=== PATIENT | female | born 1985 | race Caucasian/White ===

== ENCOUNTER 2017-10-25 20:38 | Outpatient (CLI) | payer OTHER, SELFPAY ==
[2017-10-25 21:18] VITALS: BMI 29.0
--- NOTE | 2017-10-30 08:09 | OB.TRI.NOTE ---
History of Present Illness Date of Service: 10/25/17 Reason For Visit: R/O LABOR Allergies amoxicillin Allergy (Verified 10/25/17 21:19) Rash Impression/Plan 32yo @ 40+ wks in early labor dc home pt returned a short time later in active labor with SROM at home
== END 2017-10-25 23:05 | disposition home or self-care (01) ==
LOC: WPOUT 21:13 → WP 21:14
PROVIDERS: Family Provider Obstetrics & Gynecology; Visit Provider Obstetrics & Gynecology
DX: Z34.03 Encounter for supervision of normal first pregnancy, third trimester (principal); Z3A.40 40 weeks gestation of pregnancy
CPT/HCPCS: 59025; 59050; 99218; G0378

== ENCOUNTER 2017-10-26 00:15 | Inpatient (IN) | payer OTHER, SELFPAY ==
[2017-10-26 00:22] VITALS: BMI 28.9
[2017-10-26] MEDS: Lactated Ringers 1,000 ML 50 ML IV ×3 (00:25→03:15)
[2017-10-26 02:23] LABS: Hematocrit 39.9 % (37-47); Hemoglobin 13.7 g/dl (12.0-15.0); Mean Corp Hgb Conc 34.3 g/gl (32-36); Mean Corpuscular Volume 87.5 fL (81-99); Mean Platelet Vol. 12.4 fl (6.2-12.0); Platelet Count 215 K/mm3 (150-450); RBC Distribution Width CV 13.1 % (11.6-14.6); RBC Distribution Width SD 40.9 fl (35.1-43.9); Red Blood Count 4.56 M/mm3 (4.2-5.4); White Blood Count 17.1 K/mm3 (4.4-11.0)
[2017-10-26 02:26] LABS: Scan Indicated on CBC? Y/N NO
[2017-10-26] MEDS: Oxytocin 30 units/NS 500 ml 30 UNITS/500 ML IV.SOLN 334 UNITS IV (06:22)
--- NOTE | 2017-10-26 06:32 | PCM.HP.OB ---
History Date of Admission: 10/26/17 Final ASHLEY: 10/23/17 Final ASHLEY Source: US <20 weeks Gestational age: 40 Weeks and 3 Days History of this : This is a 32 year-old, at 40.3 weeks gestational age c/o SROM at home with regular contractions pt was found to be in active labor Allergies amoxicillin Allergy (Verified 10/25/17 21:19) Rash Home Medications: Home Medications Vits [Prenatabs FA] 1 tablet PO DAILY 10/25/17 Smoking Status: Never smoker Alcohol: None Number of Fetus(es): 1 History Past Pregnancies: Past Pregnancies Delivery Date Name GA/Weeks Outcome Route Weight Infant Gender Labor Length Anesthesia Delivery Location Provider FOB Labs: O+, HIV neg, Hep B Neg, Rub imm, Syphilis neg, GBS neg Review of Systems Gastrointestinal: Reports: Abdominal Pain Physical Exam General: Alert, Oriented x3 Abdomen: Non Tender, Gravid Neurological: Cranial nerves II-XII grossly intact Estimated gestational size: Appropriate for gestational size Presentation: Cephalic Cervix Dilation (cm): 5 Station: -1 Effacement (%): 90 Assessment/Plan This is a 32 year-old, G 1, P 0, at 40.3 weeks gestational age in active labor with SROM.\ 1) Admit to L&D 2) Monitor FHR/TOCO 3) anticipate 4) epidural for pain
--- NOTE | 2017-10-26 06:41 | PCM.OB.VAG ---
Vaginal Delivery Maternal Presentation: Active Labor, Spontaneous Rupture of Membranes Amniotic Membrane Rupture Type: Spontaneous at home Amniotic Fluid Description: Clear Final ASHLEY: 10/23/17 Gestational age: 40 Weeks and 3 Days Date of Procedure: 10/26/17 Pre-Operative Diagnosis: spontaneous labor Post-Operative Diagnosis: live female Surgery/ Procedure Performed: Vacuum Assisted Vaginal Delivery Type of Anesthesia: Epidural Description of Procedure: pt with prolonged deceleration during pushing - was taken to OR for double set up back up and anesthesia were called. once we were in OR FHR was 130s- Patient was pushing effectively - vacuum applied total of 3 times with no pop offs- once head at +4 station- vacuum applied and head delivered atraumatically followed by rest of body. was vigorous at . Presentation: Vertex Placental Delivery Description: Spontaneous Placenta Disposition: [facility] Cord Vessel Description: 3 Vessels Cord Entanglement: None Drain: Gonzalez to straight drain - 300 Estimated Blood Loss: 300 A gender: Female (1 minute): 8 Episiotomy Description: None Laceration: Perineal Extension/lac - repaired with 2-0 vicryl and 3-0 rapide in usual fashion, 2nd degree Medications given after delivery: IV Pitocin Complications: None
[2017-10-26] MEDS: Oxytocin 30 units/NS 500 ml 30 UNITS/500 ML IV.SOLN 167 UNITS IV (06:52)
[2017-10-26 08:55] VITALS: BP 109/66; PULSE 85; RESP 18; TEMP 37; O2SAT 98
[2017-10-26] MEDS: Ibuprofen 600 MG Tablet PO (09:06)
[2017-10-26 11:32] VITALS: BP 103/52; PULSE 63; RESP 18; TEMP 37.1
[2017-10-26 16:00] VITALS: BP 108/62; PULSE 78; RESP 16; TEMP 36.8; O2SAT 95
[2017-10-26 19:50] VITALS: BP 123/75; PULSE 77; RESP 16; TEMP 36.7
[2017-10-27 00:50] VITALS: BP 126/73; PULSE 74; RESP 16; TEMP 36.6
[2017-10-27 05:15] VITALS: BP 126/77; PULSE 77; RESP 16; TEMP 36.4
--- NOTE | 2017-10-27 07:07 | PCM.PN.OB ---
Subjective: pain well controlled, average lochia - Physical Exam General: Alert, Cooperative, No apparent distress Vital Signs Temp Pulse Resp BP Pulse Ox 97.6 F L 77 16 126/77 H 95 10/27/17 05:15 10/27/17 05:15 10/27/17 05:15 10/27/17 05:15 10/26/17 16:00 Oxygen Delivery Method Room Air Weight: 78.925 kg Body Mass Index (BMI) 28.9 Intake and Output for Last 24 Hours 10/25/17 10/26/17 10/27/17 23:59 23:59 23:59 Intake Total 734 / 734 Output Total 1950 / 1950 Balance -1216 / -1216 Medical Necessity - Tobacco Use Smoking Status: Never smoker Assessment/Plan PPD#1 doing well working on .
[2017-10-27 09:10] VITALS: BP 117/75; PULSE 85; RESP 18; TEMP 36.8
[2017-10-27] MEDS: Acetaminophen 500 MG Tablet 1000 MG PO (11:35)
[2017-10-27 14:00] VITALS: BP 109/68; PULSE 72; RESP 20; TEMP 36.9
[2017-10-27 20:50] VITALS: BP 125/78; PULSE 75; RESP 18; TEMP 36.8; O2SAT 97
[2017-10-28 03:00] VITALS: BP 111/62; PULSE 74; RESP 16; TEMP 36.3; O2SAT 96
[2017-10-28 07:42] VITALS: BP 118/70; PULSE 66; RESP 18; TEMP 36.6
[2017-10-28 09:16] VITALS: BP 118/70; PULSE 66; RESP 18; TEMP 36.6
--- NOTE | 2017-10-28 09:16 | DCINST_ITS ---
Discharge Diet: No Restrictions Discharge Activity: Return to Normal Activity, May not drive while taking narcotic pain medications., May Shower May resume sexual activity in: 4-6 weeks Additional Activity Instructions:: Nothing in the vagina for 4-6 weeks. You may return to work/school in 6 weeks. Call your doctor if your incision/area has: Continuous Slow Oozing, Sudden Increased Bleeding, Increased Pain/ Swelling, Increased Redness, Foul Smelling Discharge Call your doctor if you observe: Fever of 101 or Higher, Inability to urinate, Inability to have a bowel movement, Using more than one pad per hour Additional Instructions: If you experience any of the following, contact your healthcare provider. * Bleeding that soaks a pad every hour for 2 hours * Fever 100.4 or higher * Unrelieved incision or abdominal pain * Swelling, redness, discharge or bleeding from your incision or episiotomy site * Your incision begins to separate * Problems urinating (including inability to urinate or burning while urinating) . * Visual changes * Severe headache * Flu-like symptoms * Pain or redness in one of both of your breasts * Pain, warmth, tenderness or swelling in your legs, especially the calf area * Frequent nausea and vomiting * Symptoms of depression or anxiety If you experience any of the following, call 911 or go to the nearest Emergency Room. * Chest pain * Problems breathing * Seizure activity * Partial or complete paralysis of a body part, slurred speech, weakness or drooping of the face, or a sudden inability to walk or hold your balance Allergies/Adverse Reactions: Allergies amoxicillin Allergy (Verified 10/25/17 21:19) Rash Medications to take at Discharge Vits [Prenatabs FA] 1 tablet PO DAILY 10/25/17 Please Follow Up With: Eduarda Conroy MD When: Call to make an appointment with your doctor in 6 weeks. If you had elevated Blood Pressure or 4th degree laceration you will need to be seen in 2 weeks. Test Results: Test results from this visit will be discussed in further detail at your follow- up appointment, if applicable. Proposed Discharge Date: 10/28/17
--- NOTE | 2017-10-28 09:23 | PN.OBGYN_ITS ---
Subjective: Patient sitting up in bed without any issues at this time. Patient denies MAC, scotoma or dizziness. Patient reports no issues with urination or ambulation. Patient reports desire to be discharged to home today. Objective: Nipples without cracks or blisters Abdomen NT x 4 quadrants, FF midline 3FB below umbilicus +2/4 reflexes in LE, no edema noted in LE. Negative calf tenderness to palpation. Scant rubra lochia Perineum well approximated - Physical Exam General: Alert, Oriented x3, Cooperative HEENT: Atraumatic, Normocephalic Neck: Supple Lungs: Clear to auscultation, Normal air movement Cardiovascular: Regular rate, No murmurs Abdomen: Soft, Non Tender Extremities: No edema, Capillary Refill Less than 3 Seconds Skin: No rashes, No breakdown Musculoskeletal: No Tenderness to Palpation of Joints or Extremities Neurological: Cranial nerves II-XII grossly intact, Deep Tendon Reflexes 2+/4 and Symmetrical Psych/Mental Status: Normal Affect, Appropriate Vital Signs Temp Pulse Resp BP Pulse Ox 97.8 F 66 18 118/70 96 10/28/17 07:42 10/28/17 07:42 10/28/17 07:42 10/28/17 07:42 10/28/17 03:00 Oxygen Delivery Method Room Air Weight: 174 lb Body Mass Index (BMI) 28.9 Intake and Output for Last 24 Hours 10/26/17 10/27/17 10/28/17 23:59 23:59 23:59 Intake Total 734 / 734 Output Total 1950 / 1950 Balance -1216 / -1216 Medical Necessity - Tobacco Use Smoking Status: Never smoker Assessment/Plan A: 32 y/o s/p VAVD, PPD #2, Normal Course P: 1) Discharge patient to home pending discharge 2) Anticipatory PP teaching done, education provided 3) RTC at [facility] by 6 week PP for next visit. Dena GRAVES
== END 2017-10-28 10:00 | disposition home or self-care (01) | DRG 775 ==
PROVIDERS: Admitting Provider Obstetrics & Gynecology; Visit Provider Obstetrics & Gynecology
DX: O76 Abnormality in fetal heart rate and rhythm complicating labor and delivery (principal); O70.1 Second degree perineal laceration during delivery; Z3A.40 40 weeks gestation of pregnancy; Z37.0 Single live birth
CPT/HCPCS: 59025; 59050; 85027; 86850; 86900; 99218; J7120; G0378

== ENCOUNTER 2017-10-30 14:45 | Outpatient (CLI) | payer OTHER, SELFPAY | END 2017-10-30 16:15 | disposition home or self-care (01) | LOC: WPOUT 14:47 → WP 14:47 | PROVIDERS: Visit Provider Obstetrics & Gynecology | DX: Z39.1 Encounter for care and examination of lactating mother (principal) | CPT/HCPCS: 96152 ==

== ENCOUNTER 2017-11-03 10:10 | Outpatient (CLI) | payer OTHER, SELFPAY | END 2017-11-03 10:40 | disposition home or self-care (01) | LOC: WPOUT 10:20 → WP 10:21 | PROVIDERS: Visit Provider Obstetrics & Gynecology | DX: Z39.1 Encounter for care and examination of lactating mother (principal) | CPT/HCPCS: 96152 ==

== ENCOUNTER → 2021-08-19 | Outpatient (CLI) | payer OTHER, SELFPAY ==
[2021-08-19 18:13] LABS: Thyroid Stim Hormone (TSH) 0.78 uIU/mL (0.358-3.74)
== END | disposition home or self-care (01) ==
LOC: MFPLAB 15:44
PROVIDERS: PCP Family Medicine; Referring Provider Family Medicine; Visit Provider Family Medicine
DX: F41.9 Anxiety disorder, unspecified (principal)
CPT/HCPCS: 36415; 84443

== ENCOUNTER → 2022-06-16 | Outpatient (CLI) | payer OTHER, SELFPAY ==
[2022-06-16 17:57] LABS: Absolute Lymphocyte Count 2.47 X10^3/uL (0.83-4.51); Absolute Neutrophil Count 3.5 X10^3/uL (2.0-7.7); Basophil# 0.05 X10^3/uL; Basophil% 0.8 % (0-1); Eosinophil# 0.04 X10^3/uL; Eosinophils% 0.6 % (0-5); Hematocrit 39.2 % (37-47); Hemoglobin 13.1 g/dL (12.0-15.0); Lymphocyte # 2.47 X10^3/ul (0.83-4.51); Lymphocyte % 37.3 % (19-41); Mean Corp Hgb Conc 33.4 g/dL (32-36); Mean Corpuscular Hgb 29.6 pg (27.0-32.0); Mean Corpuscular Volume 88.5 fL (81-99); Mean Platelet Vol. 11.6 fl (6.2-12.0); Monocyte# 0.56 X10^3/uL; Monocyte% 8.5 % (0-10); NRBC Flagged by Analyzer 0 % (0-5); Neutrophil # 3.48 X10^3/uL (2.7-7.7); Neutrophil % 52.5 % (47-70); Platelet Count 226 K/mm3 (150-450); RBC Distribution Width CV 12.7 % (11.6-14.6); RBC Distribution Width SD 41.6 fl (35.1-43.9); Red Blood Count 4.43 M/mm3 (4.2-5.4); White Blood Count 6.6 K/mm3 (4.4-11.0)
[2022-06-16 18:25] LABS: AST(SGOT) 20 U/L (15-37); Alanine Aminotransfer ALT/SGPT 31 U/L (13-56); Albumin, Serum 3.8 g/dL (3.2-5.0); Alkaline Phosphatase 65 U/L (45-117); Anion Gap 5 (5-15); BUN 11 mg/dL (7-18); BUN/Creat Ratio 15.5 RATIO (10-20); Calcium,Total 8.7 mg/dL (8.5-10.1); Chloride 105 mmol/L (98-107); Creatinine, Serum 0.71 mg/dL (0.55-1.02); EST Glomerular Filtration Rate 99 mL/min (>60); Est Glom Filt Rate - Afr Amer 119 mL/min (>60); Globulin 3.8 g/dL (2.2-4.2); Glucose 86 mg/dL (74-106); Potassium 3.6 mmol/L (3.5-5.1); Protein, Total 7.6 g/dL (6.4-8.2); Sodium Level 136 mmol/L (136-145); T4 Free Direct 1.02 ng/dL (0.76-1.46); Thyroid Stim Hormone (TSH) 1.83 uIU/mL (0.358-3.74)
[2022-06-16 19:24] LABS: Vitamin B12 357 pg/mL (211-911); Vitamin D,25 Hydroxy 26.2 ng/mL
== END | disposition home or self-care (01) ==
LOC: MFPLAB 15:39
PROVIDERS: PCP Family Medicine; Visit Provider Family Medicine
DX: R53.83 Other fatigue (principal); E55.9 Vitamin D deficiency, unspecified
CPT/HCPCS: 36415; 80053; 82306; 82607; 84439; 84443; 85025

== ENCOUNTER 2022-09-21 21:51 | Emergency (ER) | payer OTHER, SELFPAY ==
[2022-09-21 21:52] VITALS: BP 154/88; PULSE 90; RESP 16; TEMP 36.2; O2SAT 97; BMI 23.8
--- NOTE | 2022-09-21 22:10 | ED.VIS.CHEST ---
HPI History of Present Illness Chief Complaint: Chest Pain Informant: patient Narrative Narrative: Healthy 37-year-old female presenting with right-sided nonpleuritic burning chest discomfort without radiation or other associated symptoms for the past 2.5-3 hours. Started about half hour after she finished a workout in which she did treadmill work and rowing. Has never had this before, seem to become a little more prominent after it started so she presents for evaluation out of concern for new unusual symptoms. No risk factors for pulmonary embolus but she is on control pills, she is not a smoker. CVD Risk Factors: Negative for Hypertension, Diabetes, Hypercholesterolemia, Family History 1' </=55 or Smoking PE Risk Factors: Negative for Recent Travel/Surgery, Recent Immobilization, Prior DVT or PE, Cancer or OCP + Smoking + >/=35 PFSH PFSH Medical History no medical history no medical history Home Medications vits,calcium no.78-iron fumarate-folic acid 29 mg-1 mg tablet (Prenatabs FA) 1 tab PO DAILY vitamin 10/25/17 [History Last Taken 10/25/17 10:00] L norgest/E estradiol-E estrad 0.15 mg-30 mcg (84)/10 mcg(7) tabs,3mos (Ashlyna) 1 tab PO Q24H 09/21/22 [History Last Taken 09/21/22] bupropion HCl 150 mg 24 hr tablet, extended release 150 mg PO DAILY 09/21/22 [History Last Taken 09/21/22] Allergy/AdvReac Type Severity Reaction Status Date / Time amoxicillin Allergy Rash Verified 09/21/22 21:54 Social History Smoking Status: Never smoker ROS ROS ED Constitutional Constitutional ED: Denies chills or fever(s) Eyes Eyes: Denies change in vision or diplopia ENT ENT ED: Denies rhinorrhea or sore throat Cardiovascular Cardiovascular: Reports chest pain; Denies palpitations Respiratory/Chest Respiratory/Chest: Denies cough or dyspnea Gastrointestinal Gastrointestinal: Denies abdominal pain, diarrhea, nausea or vomiting Genitourinary Genitourinary ED: Denies dysuria or hematuria Musculoskeletal Musculoskeletal: Denies back pain or neck pain Integumentary Denies abscess or rash Neurologic Neurologic: Denies headache(s), paresthesias or weakness Psychiatric Psychiatric: Denies anxiety or suicidal thoughts EXAM Physical Exam Const Vital Signs: 09/21/22 21:52 09/21/22 22:24 09/21/22 22:28 Temperature 97.1 F L Temperature Source Temporal Pulse Rate 90 Respiratory Rate 16 Respiratory Effort Normal Blood Pressure 154/88 H Blood Pressure Mean 110 Pulse Ox 97 97 Oxygen Delivery Method Room Air Room Air 09/21/22 22:52 09/21/22 23:38 09/22/22 00:00 Temperature Temperature Source Pulse Rate 75 78 72 Respiratory Rate 16 16 16 Respiratory Effort Blood Pressure 130/79 H 123/79 H 112/66 Blood Pressure Mean 96 93 81 Pulse Ox 97 99 98 Oxygen Delivery Method Room Air Room Air Room Air 09/22/22 00:57 Temperature Temperature Source Pulse Rate 67 Respiratory Rate 16 Respiratory Effort Blood Pressure 120/70 Blood Pressure Mean 86 Pulse Ox 98 Oxygen Delivery Method Room Air Positive well nourished and well developed General Appearance ED: well developed and NAD HEENT Reports moist mucous membranes normocephalic and atraumatic Eyes PERRL and EOMs intact bilaterally Neck full ROM and supple Chest Wall inspection of chest normal and palpation of chest normal Chest Narrative: No significant pain with lateral compression of the rib cage Resp normal respiratory effort and clear to auscultation bilaterally Resp Narrative: No splinting on deep inspiration Cardio regular rate, regular rhythm and no murmurs Rate: Negative for tachycardic GI non-tender and non-distended Auscultation: normoactive bowel sounds Palpation: soft Back/Spine no CVA tenderness General Back: other FROM Extremity normal to inspection General Extremety ED: Negative for edema, pulses abnormal or tenderness General Extremity: Negative for edema or pulses abnormal Neuro oriented x3, CN's II-XII intact bilaterally and no sensory deficits noted Sensorium / Orientation: awake and alert Motor Exam: strength 5/5 throughout Skin no rashes or lesions noted and no wounds Heart Score History: Slightly/Non-Suspicious ECG: Nonspecific Repolarization Age: </= 45 years Risk Factors: No Risk Factors Troponin: </= Normal Limit Score: 1 MDM MDM MDM Narrative Medical decision making narrative: Patient is a PERC score of 1 because of her oral contraceptive pill use, therefore D-dimer was obtained in order to attempt to rule out pulmonary embolus which the patient is indeed at low risk for. This was within normal limits, ruling out pulmonary embolus as cause for her pain. Two-view chest x-ray negative for pneumothorax, infiltrate on my interpretation. Radiology in agreement. Troponin and the rest of her labs normal, her initial troponin was 43 we did a delta because she came in quite early after the onset of symptoms, the second measurement is 44 for a delta of 1, which is an insignificant change. Patient stable for discharge home, we did try Toradol while she was waiting and she said it did not make the pain resolved, I am not concerned that this is acute coronary syndrome and I think she stable to be discharged home. Her vital signs are normal, blood pressure discharge 120/70 heart rate 67 respirations 16 pulse ox 98 on room air. Lab Data Attestation: I reviewed the patient's lab results. Labs: Laboratory Results - last 24 hr 09/21/22 09/22/22 22:12 00:20 WBC 10.0 RBC 4.27 Hgb 12.9 Hct 36.9 L MCV 86.4 MCH 30.2 MCHC 35.0 RDW Std Deviation 40.6 RDW Coeff of Mary Kay 12.8 Plt Count 246 MPV 10.6 Immature Gran % (Auto) 0.300 Neut % (Auto) 62.5 Lymph % (Auto) 27.1 [place] % (Auto) 8.7 Eos % (Auto) 0.9 Baso % (Auto) 0.5 Absolute Neuts (auto) 6.3 Absolute Lymphs (auto) 2.71 Nucleated RBC % 0 D-Dimer Quant (PE/DVT) 0.34 Sodium 137 Potassium 3.5 Chloride 102 Carbon Dioxide 27.0 Anion Gap 8 BUN 12 Creatinine 0.76 Estim Creat Clear Calc 91.20 Est GFR (MDRD) Af Amer 109 Est GFR (MDRD) Non-Af 90 BUN/Creatinine Ratio 15.7 Glucose 107 H Calcium 9.0 Troponin I High Sens 43 44 Radiography Diagnostic Testing: Clinical Impression(s) from Imaging Studies Chest X-Ray 09/21/22 22:14 IMPRESSION: Normal x-ray examination of the chest. Electronically Signed: Leroy Jim MD at 22:29 EDT , Rhythm Strip Rhythm Strip: Sinus Rhythm Rate: 90 Ectopy: None EKG Initial EKG: Attestation: I personally reviewed and interpreted this EKG as follows: Interpretation: Sinus Rhythm, No Acute Injury Pattern and Non-Specific ST Changes (inferiorly) Prior: No Prior Discharge Plan Triage Chief Complaint: Chest Pain ED Provider: Varghese Foote Dx/Rx/DC Orders Clinical Impression: Right-sided chest pain Instructions: ED Chest Pain, Noncardiac Prescriptions: No Action Prenatabs FA 1 TABLET tablet 1 tab PO DAILY bupropion HCl 150 mg tablet extended release 24 hr 150 mg PO DAILY Patient Comments: take 1 tablet by mouth every morning L norgest/e.estradiol-e.estrad [Ashlyna] 0.15 mg-30 mcg (84)/10 mcg (7) tablets,dose pack,3 month 1 tab PO Q24H Patient Comments: take 1 tablet by mouth once daily Primary Care Provider: Dash Madison Referrals: Dash Madison MD [Primary Care Provider] - 3-5 Days if not improving Disposition Disposition: Home, Self Care
--- NOTE | 2022-09-21 22:14 | RAD_ITS ---
STUDY: X-RAY CHEST REASON FOR EXAM: Female, 37 years old. chest pain TECHNIQUE: Single AP portable view of the chest. COMPARISON: None. FINDINGS: The lungs are clear and expanded. There is no demonstrated pleural abnormality. Normal size heart. Normal mediastinum and trey. Normal visualized pulmonary arteries. Normal visualized aortic arch and descending thoracic aorta. Normal visualized thoracic spine. Normal visualized ribs, clavicles, and shoulders. There is no demonstrated abnormality of the visualized soft tissue structures of the upper abdomen. RAD/Chest 1 View (Portable) IMPRESSION: Normal x-ray examination of the chest. Electronically Signed: Leroy Jim MD at 22:29 EDT ,
--- NOTE | 2022-09-21 22:15 | EKG12_ITS ---
Test Reason : CP Blood Pressure : / mmHG Vent. Rate : 094 BPM Atrial Rate : 094 BPM P-R Int : 152 ms QRS Dur : 092 ms QT Int : 354 ms P-R-T Axes : 055 073 019 degrees QTc Int : 442 ms Normal sinus rhythm Nonspecific ST and T wave abnormality Abnormal ECG Confirmed by DALE EAST, SALMA ([id number]), technical editor KATIE NOVA ([id number]) on 09/25/2022 12:56:10 PM Referred By: PETER Confirmed By:SALMA HUNTER MD
[2022-09-21 22:24] VITALS: O2SAT 97
[2022-09-21] MEDS: Ketorolac 15 MG/ML Vial 30 MG IV (22:31)
[2022-09-21 22:41] LABS: Absolute Lymphocyte Count 2.71 X10^3/uL (0.83-4.51); Absolute Neutrophil Count 6.3 X10^3/uL (2.0-7.7); Basophil# 0.05 X10^3/uL; Basophil% 0.5 % (0-1); Eosinophil# 0.09 X10^3/uL; Eosinophils% 0.9 % (0-5); Hematocrit 36.9 % (37-47); Hemoglobin 12.9 g/dL (12.0-15.0); Lymphocyte # 2.71 X10^3/ul (0.83-4.51); Lymphocyte % 27.1 % (19-41); Mean Corpuscular Hgb 30.2 pg (27.0-32.0); Mean Corpuscular Volume 86.4 fL (81-99); Mean Platelet Vol. 10.6 fl (6.2-12.0); Monocyte# 0.87 X10^3/uL; Monocyte% 8.7 % (0-10); NRBC Flagged by Analyzer 0 % (0-5); Neutrophil # 6.25 X10^3/uL (2.7-7.7); Neutrophil % 62.5 % (47-70); Platelet Count 246 K/mm3 (150-450); RBC Distribution Width CV 12.8 % (11.6-14.6); RBC Distribution Width SD 40.6 fl (35.1-43.9); Red Blood Count 4.27 M/mm3 (4.2-5.4)
[2022-09-21 22:52] VITALS: BP 130/79; PULSE 75; RESP 16; O2SAT 97
[2022-09-21 22:58] LABS: D-Dimer Quantitative (DVT/PE) 0.34 FEU/ug/m (0.27-0.49)
[2022-09-21 22:59] LABS: Anion Gap 8 (5-15); BUN 12 mg/dL (7-18); BUN/Creat Ratio 15.7 RATIO (10-20); Chloride 102 mmol/L (98-107); Creatinine, Serum 0.76 mg/dL (0.55-1.02); EST Glomerular Filtration Rate 90 mL/min (>60); Est Glom Filt Rate - Afr Amer 109 mL/min (>60); Glucose 107 mg/dL (74-106); Potassium 3.5 mmol/L (3.5-5.1); Sodium Level 137 mmol/L (136-145); Troponin-I HS (w/2H Reflex) 43 pg/mL (3.0-54.0)
[2022-09-21 23:38] VITALS: BP 123/79; PULSE 78; RESP 16; O2SAT 99
[2022-09-22] VITALS: BP 112/66; PULSE 72; RESP 16; O2SAT 98
[2022-09-22 00:38] LABS: Reflex Troponin-HS? (from REC) Y
[2022-09-22 00:57] VITALS: BP 120/70; PULSE 67; RESP 16; O2SAT 98
[2022-09-22 01:08] LABS: Troponin-I HS 44 pg/mL (3.0-54.0)
[2022-09-22 01:30] VITALS: BP 112/68; PULSE 68; RESP 16; O2SAT 98
== END 2022-09-22 01:34 | disposition home or self-care (01) ==
PROVIDERS: Emergency Provider Emergency Medicine; PCP Family Medicine; Visit Provider Emergency Medicine
DX: R07.89 Other chest pain (principal); Z79.3 Long term (current) use of hormonal contraceptives
CPT/HCPCS: 71045; 80048; 84484; 85025; 85379; 93005; 96374; 99284; A4216

== ENCOUNTER → 2022-10-10 | Outpatient (CLI) | payer OTHER, SELFPAY ==
[2022-10-10 18:33] LABS: AST(SGOT) 18 U/L (15-37); Alanine Aminotransfer ALT/SGPT 24 U/L (13-56); Albumin, Serum 3.8 g/dL (3.2-5.0); Alkaline Phosphatase 73 U/L (45-117); Anion Gap 6 (5-15); BUN 14 mg/dL (7-18); BUN/Creat Ratio 20.4 RATIO (10-20); Calcium,Total 8.8 mg/dL (8.5-10.1); Chloride 103 mmol/L (98-107); Creatinine, Serum 0.69 mg/dL (0.55-1.02); EST Glomerular Filtration Rate 102 mL/min (>60); Est Glom Filt Rate - Afr Amer 123 mL/min (>60); Globulin 3.9 g/dL (2.2-4.2); Glucose 115 mg/dL (74-106); Potassium 3.8 mmol/L (3.5-5.1); Protein, Total 7.7 g/dL (6.4-8.2); Sodium Level 136 mmol/L (136-145)
== END | disposition home or self-care (01) ==
LOC: MTLAB 14:56
PROVIDERS: PCP Family Medicine; Referring Provider Family Medicine; Visit Provider Family Medicine
DX: E55.9 Vitamin D deficiency, unspecified (principal)
CPT/HCPCS: 36415; 80053; 82306

== ENCOUNTER 2023-01-09 04:36 | Emergency (ER) | payer OTHER, SELFPAY ==
[2023-01-09 04:37] VITALS: BP 133/89; PULSE 93; RESP 16; TEMP 37; O2SAT 98; BMI 22.0
--- NOTE | 2023-01-09 04:56 | EDS_ITS ---
HPI History of Present Illness Chief Complaint: Back Detail of Chief Complaint: Back pain Informant: patient Narrative Narrative: Patient presents with back pain initially started 2 days ago. She woke up with the pain in the morning. She gets back pain frequently so she did not think much of it. Yesterday felt pretty good just had some mild soreness and felt good before she went to bed last night. She woke up at 1230 and had severe pain in her back. She complains of some nausea. Pain is described as a burning in her low back and into her right buttock. Denies urinary symptoms. No history of kidney stones. Does not think she is . Patient denies any injury to her back. No history of sciatica. Currently rates her pain an 8 out of 10. PFSH PFSH Home Medications L norgest/E estradiol-E estrad 0.15 mg-30 mcg (84)/10 mcg(7) tabs,3mos (Ashlyna) 1 tab PO Q24H 09/21/22 [History Last Taken 09/21/22] bupropion HCl 150 mg 24 hr tablet, extended release 150 mg PO DAILY 09/21/22 [History Last Taken 09/21/22] cyclobenzaprine 10 mg tablet 10 mg PO TID PRN Muscle Spasm #20 TABLETS 01/09/23 [Rx Last Taken Unknown] hydrocodone-acetaminophen 5-325mg 5mg-325mg 1 tab PO Q4H PRN PRN Pain 3 days #15 TABLETS 01/09/23 [Rx Last Taken Unknown] naproxen 500 mg tablet (Naprosyn) 500 mg PO BID PRN pain #20 tabs 01/09/23 [Rx Last Taken Unknown] Allergy/AdvReac Type Severity Reaction Status Date / Time amoxicillin Allergy Rash Verified 01/09/23 04:42 Social History Smoking Status: Never smoker ROS ROS ED Review of Systems ROS Unobtainable: other Constitutional Constitutional ED: Reports lethargy; Denies chills, fever(s), sweats or weight loss Eyes Eyes: Denies blurry vision, change in vision or diplopia ENT ENT ED: Denies rhinorrhea or sore throat Cardiovascular Cardiovascular: Denies chest pain, orthopnea or racing heartbeat Respiratory/Chest Respiratory/Chest: Denies cough, dyspnea, dyspnea on exertion, orthopnea or sputum Gastrointestinal Gastrointestinal: Denies abdominal pain, diarrhea, nausea or vomiting Genitourinary Genitourinary ED: Denies dysuria, hematuria or urinary frequency Musculoskeletal Musculoskeletal: Reports back pain; Denies arthralgias, myalgias or neck pain Integumentary Denies abscess, Abrasions or rash Neurologic Neurologic: Denies headache(s) or weakness Psychiatric Psychiatric: Denies anxiety, depression or suicidal thoughts Endocrine Endocrinology: Denies polydipsia, polyphagia or polyuria Hematologic/Lymphatic Hematologic/Lymphatic: Denies easy bleeding, easy bruising or lymphadenopathy Allergic/Immunologic Allergic/Immunologic ED: Denies mouth swelling, tongue swelling or urticaria EXAM Physical Exam Const Vital Signs: 01/09/23 04:37 01/09/23 04:37 Temperature 98.6 F 98.6 F Temperature Source Oral Oral Pulse Rate 93 93 Respiratory Rate 16 16 Blood Pressure 133/89 H 133/89 H Blood Pressure Mean 103 103 Pulse Ox 98 98 Oxygen Delivery Method Room Air Room Air Positive well nourished and well developed General Appearance ED: well developed and NAD HEENT Reports TM's clear and moist mucous membranes normocephalic and atraumatic; Negative for trauma or tenderness Tympanic Membrane ED: Yes TM's clear Eyes PERRL and EOMs intact bilaterally General Eye ED: Negative for pale conjunctiva or scleral icterus Neck no lymphadenopathy, supple and no JVD General: Negative for tenderness Chest Wall inspection of chest normal and palpation of chest normal Chest: Negative for tenderness Resp normal respiratory effort and clear to auscultation bilaterally Effort and Inspection: Negative for respiratory distress or pain with movement Auscultation: Negative for rhonchi, wheezes or diminished lung sounds Cardio regular rate, regular rhythm, S1 normal heart sound, S2 normal heart sound and no murmurs Peripheral Pulses: pulses 2+ throughout GI normal to inspection, nondistended, normoactive bowel sounds, soft to palpation, non-tender, non-distended and no masses Back/Spine no CVA tenderness and no thoracic nor lumbar tenderness Extremity normal to inspection General Extremety ED: Negative for edema General Extremity: Negative for edema Neuro oriented x3, CN's II-XII intact bilaterally, no sensory deficits noted and gait normal Sensorium / Orientation: awake, alert, oriented to person, oriented to place and oriented to time Motor Exam: strength 5/5 throughout and strength abnormal Psych mental status grossly normal Skin no rashes or lesions noted and no wounds MDM MDM MDM Narrative Medical decision making narrative: Presents with right-sided back and flank pain. Differential would be kidney stone versus lumbar radiculopathy versus urinary tract infection. Also considered muscle spasm. IV line established. CBC with differential obtained was normal. Chemistries normal. hCG was negative. Urinalysis was normal. CT flank obtained showed no evidence of kidney stones. No acute process was noted. Patient has no red flag symptoms of cauda equina. She did not want a thing for pain as she is driving and did not think she could find a ride home. I will write her prescription for Flexeril and naproxen and Golden. Advised to follow- up with her primary care physician within next 5 to 7 days. She is to return if worsening pain, weakness extremities, change in bowel or bladder function, or condition should worsen anyway. Lab Data Attestation: I reviewed the patient's lab results. Labs: Laboratory Results - last 24 hr 01/09/23 01/09/23 05:05 05:30 WBC 10.6 RBC 4.25 Hgb 12.5 Hct 37.7 MCV 88.7 MCH 29.4 MCHC 33.2 RDW Std Deviation 40.5 RDW Coeff of Mary Kay 12.6 Plt Count 245 MPV 10.4 Immature Gran % (Auto) 0.500 Neut % (Auto) 62.8 Lymph % (Auto) 20.0 [place] % (Auto) 7.5 Eos % (Auto) 8.6 H Baso % (Auto) 0.6 Absolute Neuts (auto) 6.7 Absolute Lymphs (auto) 2.12 Nucleated RBC % 0 Sodium 139 Potassium 4.3 Chloride 109 H Carbon Dioxide 25.0 Anion Gap 5 BUN 10 Creatinine 0.66 Estim Creat Clear Calc 104.00 Est GFR (MDRD) Af Amer 128 Est GFR (MDRD) Non-Af 106 BUN/Creatinine Ratio 15.1 Glucose 105 Calcium 8.4 L Serum , Qual NEGATIVE Urine Color Yellow Urine Clarity Clear Urine pH 6.0 Ur Specific [place] 1.015 Urine Protein Negative Urine Glucose (UA) Normal Urine Ketones Negative Urine Occult Blood Negative Urine Nitrite Negative Urine Bilirubin Negative Urine Urobilinogen Normal Ur Leukocyte Esterase Negative Urine RBC 0 SEEN Urine WBC 0 SEEN Ur Squamous Epith Cells 0 SEEN Urine Bacteria 0 SEEN Urine Mucus 0 SEEN Radiography Diagnostic Testing: Clinical Impression(s) from Imaging Studies Abdomen/Pelvis CT 01/09/23 04:56 IMPRESSION: Appendix is not definitely identified, however, there are no significant right lower quadrant inflammatory fat changes or focal fluid collection to suggest acute appendicitis. Otherwise, no acute abdominal abnormality is identified, to include no evidence of obstructing ureteral calculus. Colonic diverticulosis without evidence of diverticulitis. Electronically Signed: Vicente Kasper MD at 5:57 EDT , Discharge Plan Triage Chief Complaint: Back ED Provider: Dewayne Steiner Dx/Rx/DC Orders Clinical Impression: Back pain Instructions: ED Back Pain (Acute or Chronic) Prescriptions: New cyclobenzaprine [cyclobenzaprine] 10 mg tablet 10 mg PO TID PRN (Reason: Muscle Spasm) Qty: 20 0RF hydrocodone-acetaminophen [hydrocodone-acetaminophen] 5-325 mg tablet 1 tab PO Q4H PRN PRN (Reason: Pain) 3 Days Qty: 15 0RF naproxen [Naprosyn] 500 mg tablet 500 mg PO BID PRN (Reason: pain) Qty: 20 0RF No Action bupropion HCl 150 mg tablet extended release 24 hr 150 mg PO DAILY Patient Comments: take 1 tablet by mouth every morning L norgest/e.estradiol-e.estrad [Ashlyna] 0.15 mg-30 mcg (84)/10 mcg (7) tablets,dose pack,3 month 1 tab PO Q24H Patient Comments: take 1 tablet by mouth once daily Primary Care Provider: Dash Madison Referrals: Dash Madison MD [Primary Care Provider] - 5-7 Days Disposition Disposition: Home, Self Care
--- NOTE | 2023-01-09 04:56 | CT_ITS ---
INDICATION: right flank pain COMPARISON: None. RADIATION DOSAGE (If Supplied By Facility): CTDIvol = ( 6.14 ) mGy, DLP = ( 275.96 ) mGycm A radiation dose optimization technique was used for this scan. FINDINGS: Noncontrast serial CT axial images through the abdomen and pelvis with coronal and sagittal reformatted series. PANCREAS: No peripancreatic fat stranding. BOWEL/MESENTERY: No dilated bowel loops. No significant free fluid. No free air. Colonic diverticulosis without evidence of diverticulitis. GALLBLADDER: No pericholecystic fat stranding. LIVER/STOMACH: No obvious abnormality. URINARY COLLECTING SYSTEM/ KIDNEYS: No obstructing ureteral calculus. No significant renal parenchymal abnormality. APPENDIX: Appendix is not definitely identified, however, there are no significant right lower quadrant inflammatory fat changes or focal fluid collection to suggest acute appendicitis. LUNG BASES: Unremarkable. BONES: Unremarkable for age. CT/Abdomen/Pelvis without Cont IMPRESSION: Appendix is not definitely identified, however, there are no significant right lower quadrant inflammatory fat changes or focal fluid collection to suggest acute appendicitis. Otherwise, no acute abdominal abnormality is identified, to include no evidence of obstructing ureteral calculus. Colonic diverticulosis without evidence of diverticulitis. Electronically Signed: Vicente Kasper MD at 5:57 EDT ,
[2023-01-09 05:10] LABS: Absolute Lymphocyte Count 2.12 X10^3/uL (0.83-4.51); Absolute Neutrophil Count 6.7 X10^3/uL (2.0-7.7); Basophil# 0.06 X10^3/uL; Basophil% 0.6 % (0-1); Eosinophil# 0.91 X10^3/uL; Eosinophils% 8.6 % (0-5); Hematocrit 37.7 % (37-47); Hemoglobin 12.5 g/dL (12.0-15.0); Lymphocyte # 2.12 X10^3/ul (0.83-4.51); Mean Corp Hgb Conc 33.2 g/dL (32-36); Mean Corpuscular Hgb 29.4 pg (27.0-32.0); Mean Corpuscular Volume 88.7 fL (81-99); Mean Platelet Vol. 10.4 fl (6.2-12.0); Monocyte# 0.79 X10^3/uL; Monocyte% 7.5 % (0-10); NRBC Flagged by Analyzer 0 % (0-5); Neutrophil # 6.65 X10^3/uL (2.7-7.7); Neutrophil % 62.8 % (47-70); Platelet Count 245 K/mm3 (150-450); RBC Distribution Width CV 12.6 % (11.6-14.6); RBC Distribution Width SD 40.5 fl (35.1-43.9); Red Blood Count 4.25 M/mm3 (4.2-5.4); White Blood Count 10.6 K/mm3 (4.4-11.0)
[2023-01-09 05:21] LABS: Internal QC Validated? YES +Cl - CLEAR BKGD; Pregnancy, Serum, hCG Quali. NEGATIVE Negative
[2023-01-09 05:26] LABS: Anion Gap 5 (5-15); BUN 10 mg/dL (7-18); BUN/Creat Ratio 15.1 RATIO (10-20); Calcium,Total 8.4 mg/dL (8.5-10.1); Chloride 109 mmol/L (98-107); Creatinine, Serum 0.66 mg/dL (0.55-1.02); EST Glomerular Filtration Rate 106 mL/min (>60); Est Glom Filt Rate - Afr Amer 128 mL/min (>60); Glucose 105 mg/dL (74-106); Potassium 4.3 mmol/L (3.5-5.1); Sodium Level 139 mmol/L (136-145)
[2023-01-09 05:39] LABS: Bacteria 0 SEEN /hpf (None Seen); Mucous, Urine 0 SEEN /hpf (<or=2+); Red Blood Cells-Urine 0 SEEN /hpf (0-5); Squamous Epithelial Cells - UA 0 SEEN /hpf (5-10); White Blood Cells 0 SEEN /hpf (0-5)
[2023-01-09 05:40] LABS: Color, Urine Yellow (Yellow); Glucose, Dipstick Normal (Normal); Ketone-Dipstick Negative (Negative); Leukocyte Esterase-Dipstick Negative /ul (Negative); Nitrite-Dipstick Negative (Negative); Occult Blood-Urine Negative /ul (Negative); Protein-Dipstick Negative (Negative); Specific Gravity, Urine 1.015 (1.002-1.030); Urine Bilirubin Dipstick Negative (Negative); Urine Clarity Clear (Clear); Urine Urobilinogen Normal (Normal)
== END 2023-01-09 06:16 | disposition home or self-care (01) ==
PROVIDERS: Emergency Provider Emergency Medicine; PCP Family Medicine; Visit Provider Emergency Medicine
DX: M54.50 Low back pain, unspecified (principal); R10.9 Unspecified abdominal pain; R11.0 Nausea; Z79.899 Other long term (current) drug therapy
CPT/HCPCS: 74176; 80048; 81001; 84703; 85025; 99283; A4216

== ENCOUNTER → 2023-07-25 | Outpatient (CLI) | payer OTHER, SELFPAY ==
[2023-07-25 17:46] LABS: Absolute Lymphocyte Count 2.82 X10^3/uL (0.83-4.51); Absolute Neutrophil Count 5.3 X10^3/uL (2.0-7.7); Basophil# 0.06 X10^3/uL; Basophil% 0.7 % (0-1); Eosinophil# 0.15 X10^3/uL; Eosinophils% 1.7 % (0-5); Hematocrit 38.9 % (37-47); Hemoglobin 12.9 g/dL (12.0-15.0); Lymphocyte # 2.82 X10^3/ul (0.83-4.51); Lymphocyte % 31.8 % (19-41); Mean Corp Hgb Conc 33.2 g/dL (32-36); Mean Corpuscular Hgb 29.3 pg (27.0-32.0); Mean Corpuscular Volume 88.2 fL (81-99); Mean Platelet Vol. 11.4 fl (6.2-12.0); Monocyte# 0.56 X10^3/uL; Monocyte% 6.3 % (0-10); NRBC Flagged by Analyzer 0 % (0-5); Neutrophil # 5.25 X10^3/uL (2.7-7.7); Neutrophil % 59.3 % (47-70); Platelet Count 254 K/mm3 (150-450); RBC Distribution Width CV 12.8 % (11.6-14.6); RBC Distribution Width SD 41.7 fl (35.1-43.9); Red Blood Count 4.41 M/mm3 (4.2-5.4); White Blood Count 8.9 K/mm3 (4.4-11.0)
[2023-07-25 17:56] LABS: AST(SGOT) 17 U/L (15-37); Alanine Aminotransfer ALT/SGPT 27 U/L (13-56); Albumin, Serum 3.7 g/dL (3.2-5.0); Alkaline Phosphatase 63 U/L (45-117); Anion Gap 6 (5-15); BUN 15 mg/dL (7-18); BUN/Creat Ratio 21.5 RATIO (10-20); Calcium,Total 9.1 mg/dL (8.5-10.1); Chloride 105 mmol/L (98-107); EST Glomerular Filtration Rate 100 mL/min (>60); Est Glom Filt Rate - Afr Amer 121 mL/min (>60); Globulin 3.8 g/dL (2.2-4.2); Glucose 118 mg/dL (74-106); Potassium 3.7 mmol/L (3.5-5.1); Protein, Total 7.5 g/dL (6.4-8.2); Sodium Level 136 mmol/L (136-145)
[2023-07-25 18:09] LABS: Vitamin D,25 Hydroxy 16.5 ng/mL
[2023-07-26 20:09] LABS: Hemoglobin A1c 5.1 % (3.8-5.6)
== END | disposition home or self-care (01) ==
LOC: MFPLAB 14:40
PROVIDERS: PCP Family Medicine; Visit Provider Family Medicine
DX: R73.09 Other abnormal glucose (principal); E55.9 Vitamin D deficiency, unspecified; Z83.49 Family history of other endocrine, nutritional and metabolic diseases
CPT/HCPCS: 36415; 80053; 82306; 83036; 85025

== ENCOUNTER → 2024-03-20 | Outpatient (CLI) | payer OTHER, SELFPAY ==
[2024-03-20 18:00] LABS: Vitamin D,25 Hydroxy 32.8 ng/mL
[2024-03-20 18:12] LABS: ALB/GLOB Ratio 1.1 RATIO (0.9-2.4); AST(SGOT) 26 U/L (15-37); Alanine Aminotransfer ALT/SGPT 49 U/L (13-56); Albumin, Serum 3.9 g/dL (3.2-5.0); Alkaline Phosphatase 92 U/L (45-117); Anion Gap 6 (5-15); BUN 11 mg/dL (7-18); BUN/Creat Ratio 17.9 RATIO (10-20); Calcium,Total 9.1 mg/dL (8.5-10.1); Chloride 102 mmol/L (98-107); Creatinine, Serum 0.61 mg/dL (0.55-1.02); EST Glomerular Filtration Rate 115 mL/min (>60); Est Glom Filt Rate - Afr Amer 140 mL/min (>60); Globulin 3.5 g/dL (2.2-4.2); Glucose 81 mg/dL (74-106); Potassium 3.8 mmol/L (3.5-5.1); Protein, Total 7.4 g/dL (6.4-8.2); Sodium Level 137 mmol/L (136-145)
== END | disposition home or self-care (01) ==
LOC: MFPLAB 14:10
PROVIDERS: PCP Family Medicine; Referring Provider Family Medicine; Visit Provider Family Medicine
DX: E55.9 Vitamin D deficiency, unspecified (principal)
CPT/HCPCS: 36415; 80053; 82306